=== PATIENT | female | born 1940 | race Caucasian/White ===

== ENCOUNTER 2016-11-01 11:49 | Day surgery (SDC) | payer MEDICARE, OTHER ==
--- NOTE | ~2016-11-01 | EGD ---
EGD REPORT [facility] [address] [id number] NAME: MAINE ARELLANO : [birth year] STATUS : REG [facility]#: [id number] AGE: 76 ADM/REG DATE : 11/01/16 MR#: [id number] REPORT SERV DATE: 11/01/16 DICTATED BY: JANE NEWMAN DATE: 11/01/16 REPORT STATUS : Draft TRANSCRIBED BY: [facility] DATE: 11/01/16 Pulmonology Patient Name: Maine Arellano Procedure Date: 11/01/2016 1:50 PM Date of : 1940 Attending MD: MEGHNA NEWMAN MD Procedure Date No Time: 11/01/2016 Procedure: EBUS Bronchoscopy Indications: Mediastinal adenopathy, history of lymphoma Providers: MEGHNA NEWMAN MD Referring MD: RAMEZ GONZALEZ Medicines: Lidocaine 2% 20 mL Complications: No immediate complications Procedure: Pre-Anesthesia Assessment: - A History and Physical has been performed. Patient meds and allergies have been reviewed. The risks and benefits of the procedure and the sedation options and risks were discussed with the patient. All questions were answered and informed consent was obtained. Patient identification and proposed procedure were verified prior to the procedure by the physician and the nurse in the pre-procedure area in the procedure room. Mental Status Examination: normal. Airway Examination: normal oropharyngeal airway. Respiratory Examination: clear to auscultation. CV Examination: normal and RRR, no murmurs, no S3 or S4. ASA Grade Assessment: III - A patient with severe systemic disease. After reviewing the risks and benefits, the patient was deemed in satisfactory condition to undergo the procedure. The anesthesia plan was to use general anesthesia. Immediately prior to administration of medications, the patient was re-assessed for adequacy to receive sedatives. The heart rate, respiratory rate, oxygen saturations, blood pressure, adequacy of pulmonary ventilation, and response to care were monitored throughout the procedure. The physical status of the patient was re-assessed after the procedure. After obtaining informed consent, the BF [id number] was introduced through the mouth, via the endotracheal tube (the patient was intubated for the procedure) and advanced to the tracheobronchial tree. the Bronchoscope was introduced through the mouth, via the endotracheal tube (the patient was intubated for the procedure) and advanced to the tracheobronchial tree. The procedure was accomplished without difficulty. The patient tolerated the procedure well. EGD REPORT [address] [address] NAME: MAINE ARELLANO : [birth year] [place] [facility] [place] [id number] AGE: 76 ADM/REG DATE : 11/01/16 MR#: [id number] REPORT SERV DATE: 11/01/16 DICTATED BY: JANE NEWMAN DATE: 11/01/16 REPORT STATUS : Draft TRANSCRIBED BY: [employer] DATE: 11/01/16 Findings: The endotracheal tube is in good position. The visualized portion of the trachea is of normal caliber. The jaja is sharp. The tracheobronchial tree was examined to at least the first subsegmental level. Bronchial mucosa and anatomy are normal; there are no endobronchial lesions, and no secretions. EBUS TBNA of lymph node level 7 x 4 passes for cytology EBUS TBNA of lymph node level 11R x 11 passes for cytology and flow cytometry Impression: Rapid On-Site Evaluation (ALMA): Preliminary cytology is "NECROSIS, NO VIABLE TUMOR SEEN" (final results are pending). Recommendation: - Await test results. - Follow up with referring physician. Attending Participation: I personally performed the entire procedure. MEGHNA NEWMAN MD 11/01/2016 3:06 PM This report has been signed electronically. Number of Addenda: 0 Note Initiated On: 11/01/2016 1:50 PM [address] [id number]
[~2016-11-01 11:49] MED LIST: ASAB PO; CALTRA600D PO; CO Q-10 PO; COQ-10200 MG PO; FISH-EPA1000 MG PO; FOLIC PO; MTX2.5 PO; MULTIPLE VIT PO; P20 PO; PEP20 PO; PR25 PO; PROBIOTIC PO; TESS PO; TUMERIC PO; ULTRAM50 PO; VITAMIN B-121000 MC1 SL; VITAMIN D31000 UNIT PO; Z-PAK PO; ZOFRAN8 PO; ZOVIRAX400 MG PO; [UNRECOGNIZED DRUG - OTHER]; [UNRECOGNIZED DRUG - OTHER] PO; [UNRECOGNIZED DRUG - OTHER] PO; [UNRECOGNIZED DRUG - OTHER] PO
[2016-11-01 13:53] LABS: BASOPHILS 0.3 %; BASOPHILS ABSOLUTE 0.01 10/3/uL (0.0-0.16); EOSINOPHILS 0.3 %; EOSINOPHILS ABSOLUTE 0.01 10/3/uL (0.0-0.53); HEMATOCRIT 32.2 % (36.0-48.0); HEMOGLOBIN 10.6 g/dL (12.0-16.0); LYMPHOCYTES 15.4 %; LYMPHOCYTES ABSOLUTE 0.61 10/3/uL (0.67-4.30); MANUAL DIFF NO %; MEAN CORPUS HGB CONC 32.9 g/dL (32.0-36.0); MEAN CORPUSCULAR HEMOGLOB 34.6 pg (26.0-34.0); MEAN CORPUSCULAR VOLUME 105.2 fL (80-100); MEAN PLATELET VOLUME 10.6 fL (9.2-13.0); MONOCYTES 10.4 %; MONOCYTES ABSOLUTE 0.41 10/3/uL (0.21-1.20); NEUTROPHILS 73.6 %; NEUTROPHILS ABSOLUTE 2.92 10/3/uL (2.02-8.40); PLATELET COUNT 195 10/3/uL (150-400); RBC DISTRIBUTION WIDTH 15.6 % (12.0-16.0); RED CELL COUNT 3.06 10/6/uL (4.0-5.6)
[2016-11-01 14:00] LABS: INTERNATIONAL NORMAL RATI 1.1 UNITS (-); PARTIAL THROMBO TIME 26.6 SEC (22.5-37.2); PROTIME (NOT ORD) 14.1 SEC (12.0-14.5)
[2016-11-01 14:04] LABS: BUN (BLOOD UREA NITROGEN) 14 MG/DL (6-23); CALCIUM, SERUM 8.8 MG/DL (8.5-10.4); CHLORIDE, SERUM 107 MMOL/L (96-112); CO2 (CARBON DIOXIDE) 30 MMOL/L (24-34); CREATININE 0.61 MG/DL (0.55-1.02); GFR AFRICAN AMERICAN 103 ML/MIN (>=60); GFR NON AFRICAN AMERICAN 89 ML/MIN (>=60); GLUCOSE, SERUM 77 MG/DL (60-99); POTASSIUM, SERUM 3.5 MMOL/L (3.5-5.3); SODIUM, SERUM 142 MMOL/L (135-148)
== END 2016-11-01 17:27 | disposition home or self-care (01) ==
LOC: DMU 11:49
PROVIDERS: Internal Medicine
PROC: 07974ZX Drainage of Thorax Lymphatic, Percutaneous Endoscopic Approach, Diagnostic (ICD-10-PCS; principal; 2016-11-01 13:30)
DX: R59.0 Localized enlarged lymph nodes (principal); Z85.72 Personal history of non-Hodgkin lymphomas; Z92.21 Personal history of antineoplastic chemotherapy; Z98.890 Other specified postprocedural states; N30.10 Interstitial cystitis (chronic) without hematuria; K57.92 Diverticulitis of intestine, part unspecified, without perforation or abscess without bleeding; M06.9 Rheumatoid arthritis, unspecified; Z87.01 Personal history of pneumonia (recurrent); Z90.89 Acquired absence of other organs; Z97.2 Presence of dental prosthetic device (complete) (partial); Z79.899 Other long term (current) drug therapy; Z78.0 Asymptomatic menopausal state
CPT/HCPCS: 71010; 80048; 85025; 85610; 85730; 88172; 88173; 88305; 88312; 93005; A9270-GY; C1725; J2405; J3010